=== PATIENT | male | born 1970 | race Caucasian/White ===

== ENCOUNTER 2019-07-14 10:44 | Emergency (ER) | payer OTHER ==
[~2019-07-14] VITALS: Ht 165.1 cm; Wt 74.5 kg
[2019-07-14 10:48] VITALS: BP 156/79
[2019-07-14] MEDS ORDERED: VITAMIN C500 MG PO (10:54)
[2019-07-14] MEDS ORDERED: ADVIL200 MG PO (10:55)
[2019-07-14] MEDS ORDERED: NEPHRON FA TAB1 EACH PO (10:55)
[2019-07-14] MEDS ORDERED: ZOFRAN 4MG T4 MG/TAB PO (11:39)
[2019-07-14] MEDS ORDERED: TUSS PO ×2 (11:39→11:41)
[2019-07-14 11:58] VITALS: PULSE 105; TEMP 101.5
== END 2019-07-14 11:57 | disposition home or self-care (01) ==
LOC: COL.ER 10:44
DX: J11.1 Influenza due to unidentified influenza virus with other respiratory manifestations (principal); Z79.1 Long term (current) use of non-steroidal anti-inflammatories (NSAID)

== ENCOUNTER 2020-08-12 06:30 | Emergency (ER) | payer OTHER ==
[~2020-08-12] VITALS: Ht 165.1 cm; Wt 72.7 kg
[~2020-08-12 06:30] MED LIST: ADVIL200 MG PO; NEPHRON FA TAB1 EACH PO; TUSS PO; VITAMIN C500 MG PO; ZOFRAN 4MG T4 MG/TAB PO
[2020-08-12 06:37] VITALS: TEMP 98.6
[2020-08-12 07:16] LABS: BASO # 0.1 (0.0-0.2); BASO % 0.4 % (0.0-2.0); EOS % 0.1 % (0-4.0); GRAN # 13.9 (1.4-6.5); GRAN % 88.7 % (42.2-75.2); HEMOGLOBIN 18.6 g/dl (13.5-18.0); LYMPH # 0.5 (1.2-3.4); LYMPH % 3.3 % (20.0-51.0); MEAN CELL VOLUME 94 fl (80.0-100.0); MEAN CORPUSCULAR HEMOGLOBIN 31 pg (27.0-31.0); MEAN CORPUSCULAR HGB CONC 33 g/dl (33.0-37.0); MEAN PLATELET VOLUME 10.8 fl (7.4-10.4); MONO # 1.1 (0.1-0.6); MONO % 7.2 % (1.7-9.3); PLATELET COUNT 221 K/mm3 (130-400); RED BLOOD COUNT 5.94 M/mm3 (4.20-5.60); REDCELL DISTRIBUTION WIDTH-CV 12.4 % (11.5-14.5)
[2020-08-12 07:28] LABS: C-REACTIVE PROTEIN 0.8 mg/dL (0.0-0.9); CALCIUM 9.2 mg/dL (8.4-10.2); CREATININE, serum 0.88 (0.66-1.25); POTASSIUM 3.8 mmol/L (3.4-5.0); TOTAL PROTEIN 9.5 gm/dL (6.4-8.2)
[2020-08-12] MEDS ORDERED: ZOFRAN ODT4 MG PO (07:32)
[2020-08-12 08:43] VITALS: BP 127/74; PULSE 94
== END 2020-08-12 08:43 | disposition home or self-care (01) ==
LOC: COL.ER 06:30
PROVIDERS: Emergency Medicine
DX: R11.2 Nausea with vomiting, unspecified (principal); R19.7 Diarrhea, unspecified; Z79.899 Other long term (current) drug therapy
CPT/HCPCS: J2405; J7030

== ENCOUNTER → 2023-05-24 | Outpatient (CLI) | payer OTHER ==
[~2023-05-24] MED LIST changes: +ZOFRAN ODT4 MG PO
== END ==
LOC: COL.RAD 14:03
DX: R19.09 Other intra-abdominal and pelvic swelling, mass and lump (principal)